=== PATIENT | male | born 1955 | race Caucasian/White ===

== ENCOUNTER 2018-01-10 08:15 | Inpatient (IN) | payer OTHER ==
[2018-01-06 15:34] LABS: BASOPHILS % (AUTO) 0.4 % (0-1); EOSINOPHILS # (AUTO) 0.2 X10'3 (0-0.9); EOSINOPHILS % (AUTO) 2.8 % (0-6); LYMPHOCYTES # (AUTO) 1.4 X10'3 (1.1-4.8); LYMPHOCYTES % (AUTO) 16.6 % (21-51); MEAN CORPUSCULAR HEMOGLOBIN 30.6 PG (27.0-31.0); MEAN CORPUSCULAR HGB CONC 34.3 % (33.0-36.5); MEAN CORPUSCULAR VOLUME 89.2 FL (78-98); MONOCYTES # (AUTO) 0.9 X10'3 (0-0.9); MONOCYTES % (AUTO) 10.1 % (2-12); NEUTROPHILS # (AUTO) 6.1 X10'3 (1.8-7.7); NEUTROPHILS % (AUTO) 70.1 % (42-75); PRE OP HEMATOCRIT 42.2 % (42.0-52.0); PRE OP HEMOGLOBIN 14.5 g/dL (14.0-17.9); PRE OP PLATELET COUNT 386 X10'3 (140-440); RED BLOOD COUNT 4.73 X10'6 (4.70-6.10); RED CELL DISTRIBUTION WIDTH 13.9 % (11.5-14.5)
[2018-01-06 15:48] LABS: ALBUMIN 3.6 G/DL (3.4-5.0); ALKALINE PHOSPHATASE 58 IU/L (46-116); BLOOD UREA NITROGEN 20 MG/DL (7-18); BUN/CREATININE RATIO 15.7 (5.4-32.0); CALCIUM 9.5 MG/DL (8.5-10.1); CHLORIDE 100 MMOL/L (99-107); CREATININE 1.27 MG/DL (0.60-1.10); PRE OP ALT 28 U/L (30-65); PRE OP ANION GAP 10 (8-16); PRE OP AST 15 U/L (10-37); PRE OP BILIRUB, TOTAL 0.6 MG/DL (0.0-1.0); PRE OP GLUCOSE 102 MG/DL (70-104); PRE OP POTASSIUM 3.7 MMOL/L (3.4-5.1); PRE OP SODIUM 138 MMOL/L (135-145); TOTAL CARBON DIOXIDE 27.6 MMOL/L (24-32); TOTAL PROTEIN 7.3 G/DL (6.4-8.2); eGFR 57 ML/MIN
[2018-01-10] VITALS (16 sets, daily range): BP systolic 115–144; BP diastolic 58–84
[~2018-01-10] VITALS: Ht 175.3 cm; Wt 85.4 kg
[~2018-01-10 08:15] MED LIST: ATOR10TA70 PO; CHLO25TA10 PO; Cefazolin 2GM/50ML dext iso,osmotic IVPB IV ONE; LISI10TA4 PO; METF-950 PO; OMEP-50 PO; VANCOMYCIN INJ 1000 MG in NORMAL SALINE 250ml IV.SOLN IV ONE; famotidine 20mg tablet PO ONE; ringers solution, lacted 1,000 ML IV SCH; tranexamic acid inj. 900 MG in normal saline 100ml IV soln 91 ML IV ONE
[2018-01-10] MEDS ORDERED: tranexamic acid inj. 900 MG in normal saline 100ml IV soln 91 ML IV ONE (09:30)
[2018-01-10] MEDS ORDERED: vancomycin 1,000mg inj ONE (10:47)
[2018-01-10] MEDS ORDERED: ROPIVAcaine 0.5% (5mg/ml) 30ml vial ONE ×3 (10:47→11:28)
[2018-01-10] MEDS ORDERED: ketorolac trometh. 30mg/ml inj. ONE (10:47)
[2018-01-10] MEDS ORDERED: fentaNYL/PF 50MCG/1 ML 2ML syringe ONE ×2 (11:24→13:03)
[2018-01-10] MEDS ORDERED: midazolam 2 mg/2 ml injection ONE ×2 (11:25)
[2018-01-10] MEDS ORDERED: propofol inj 20 ML IV ONE (11:28)
[2018-01-10] MEDS ORDERED: tranexamic acid inj. 850 MG in normal saline 100ml IV soln 91.5 ML IV ONE ×4 (11:40)
[2018-01-10] MEDS ORDERED: sevoflurane 250ml liquid IH ONE (12:00)
[2018-01-10] MEDS ORDERED: cloNIDine hcl/PF 100mcg/ml inj ONE (12:00)
[2018-01-10] MEDS ORDERED: proCHLORperazine 10 MG/2 ml inj IV PRN (13:05)
[2018-01-10] MEDS ORDERED: ringers solution, lacted 1,000 ML IV SCH (13:05)
[2018-01-10] MEDS ORDERED: meperidine/PF 25mg/ml syringe IV PRN ×3 (13:05)
[2018-01-10] MEDS ORDERED: ondansetron/PF 4mg/2ml inj IV PRN ×2 (13:05→14:30)
[2018-01-10] MEDS ORDERED: morphine 4 MG/ML inj SYRINge IV PRN ×2 (13:05)
[2018-01-10] MEDS ORDERED: dexamethasone sod phosphate 4mg/ml inj. ONE (14:19)
[2018-01-10] MEDS ORDERED: ondansetron/PF 4mg/2ml inj ONE (14:19)
[2018-01-10] MEDS ORDERED: magnesium hydroxide 30ml (MOM) UD suspension PO PRN (14:30)
[2018-01-10] MEDS ORDERED: acetaminophen 325mg tablet PO PRN (14:30)
[2018-01-10] MEDS ORDERED: oxyCODONE IR 5mg (immed. release) tablet PO PRN (14:30)
[2018-01-10] MEDS ORDERED: HYDROmorphone 1 mg/ml syringe IV PRN ×2 (14:30)
[2018-01-10] MEDS ORDERED: diphenhydrAMINE 25mg capsule PO PRN ×2 (14:30)
[2018-01-10] MEDS ORDERED: bisacodyl 10mg suppository rectal RC PRN (14:30)
[2018-01-10] MEDS: oxyCODONE IR 5mg (immed. release) tablet PO PRN (15:24)
[2018-01-10] MEDS: ceFAZolin 1GM/D5W- ADD-VANTAGE 50 ML IV SCH ×2 (15:24→23:42)
[2018-01-10] MEDS: potassium cl 20mEq in 1/2 NS 1,000 ML IV SCH (15:25)
[2018-01-10] MEDS ORDERED: tranexamic acid inj. 850 MG in normal saline 100ml IV soln 100 ML IV ONE (17:00)
[2018-01-10] MEDS ORDERED: vancomycin/NS 1 GM ADD-VANTAGE 250 ML IV SCH (20:00)
[2018-01-10] MEDS: acetaminophen 325mg tablet PO SCH (20:12)
[2018-01-10] MEDS: gabapentin 300mg capsule PO SCH (20:12)
[2018-01-10] MEDS: ketorolac tromethamine 15mg/ml inj. IV SCH (20:14)
[2018-01-10] MEDS ORDERED: sennosides 8.6mg tablet PO SCH (21:00)
[2018-01-11] VITALS: BP 102/56
[2018-01-11 02:00] VITALS: BP 116/64
[2018-01-11] MEDS: ketorolac tromethamine 15mg/ml inj. IV SCH ×2 (02:11→06:57)
[2018-01-11] MEDS: acetaminophen 325mg tablet PO SCH ×2 (02:11→06:57)
[2018-01-11] MEDS: potassium cl 20mEq in 1/2 NS 1,000 ML IV SCH ×2 (02:21→06:30)
[2018-01-11 06:00] VITALS: BP 104/56
[2018-01-11 06:23] LABS: BASOPHILS % (AUTO) 0.3 % (0-1); EOSINOPHILS # (AUTO) 0.2 X10'3 (0-0.9); EOSINOPHILS % (AUTO) 1.6 % (0-6); HEMATOCRIT 33.5 % (42.0-52.0); HEMOGLOBIN 11.6 g/dl (14.0-17.9); LYMPHOCYTES # (AUTO) 1.1 X10'3 (1.1-4.8); LYMPHOCYTES % (AUTO) 11.5 % (21-51); MEAN CORPUSCULAR HGB CONC 34.5 % (33.0-36.5); MEAN CORPUSCULAR VOLUME 89.9 FL (78-98); MONOCYTES # (AUTO) 0.9 X10'3 (0-0.9); MONOCYTES % (AUTO) 9.1 % (2-12); NEUTROPHILS # (AUTO) 7.3 X10'3 (1.8-7.7); NEUTROPHILS % (AUTO) 77.5 % (42-75); PLATELET COUNT 302 X10'3 (140-440); RED BLOOD COUNT 3.73 X10'6 (4.70-6.10); RED CELL DISTRIBUTION WIDTH 13.5 % (11.5-14.5); WHITE BLOOD COUNT 9.4 X10'3 (4.5-11.0)
[2018-01-11] MEDS: gabapentin 300mg capsule PO SCH (06:57)
[2018-01-11 07:23] LABS: ANION GAP 9 (8-16); CHLORIDE 103 MMOL/L (99-107); SODIUM 136 MMOL/L (135-145); TOTAL CARBON DIOXIDE 23.8 MMOL/L (24-32)
[2018-01-11] MEDS ORDERED: pantoprazole 40mg Tablet.DR PO SCH (07:30)
[2018-01-11] MEDS ORDERED: atorvastatin 10mg tablet PO SCH (08:00)
[2018-01-11] MEDS ORDERED: aspirin 325mg tablet PO SCH (08:30)
[2018-01-11 10:00] VITALS: BP 127/66
[2018-01-11] MEDS: oxyCODONE IR 5mg (immed. release) tablet PO PRN (11:07)
[2018-01-11] MEDS ORDERED: celeCOXIB 100mg capsule PO SCH (20:00)
[2018-01-12] MEDS ORDERED: acetaminophen 325mg tablet PO PRN (14:30)
== END 2018-01-11 12:40 | disposition home or self-care (01) | DRG 483 ==
LOC: PAS IN 08:15 → EDSTATUS 11:15 → ORTHO 4S 15:17
PROVIDERS: ADMIT Orthopaedic Surgery; ATTEND Orthopaedic Surgery
PROC: 0LS30ZZ Reposition Right Upper Arm Tendon, Open Approach (ICD-10-PCS; 2018-01-10)
PROC: 0RRJ0JZ Replacement of Right Shoulder Joint with Synthetic Substitute, Open Approach (ICD-10-PCS; principal; 2018-01-10 12:00)
DX: M19.011 Primary osteoarthritis, right shoulder (principal); D62 Acute posthemorrhagic anemia; I10 Essential (primary) hypertension; E11.9 Type 2 diabetes mellitus without complications; K21.9 Gastro-esophageal reflux disease without esophagitis; E78.5 Hyperlipidemia, unspecified; G89.29 Other chronic pain; M65.9 Synovitis and tenosynovitis, unspecified
CPT/HCPCS: 36415; 80051; 80053; 82948; 83036; 85025; 87070; 97110; 97116; 97162; A4565; A7000; C1713; C1776; J0690; J0735; J1100; J1885; J2250; J2405; J2704; J2795; J3010; J3370; J7030; J7040; J7120